=== PATIENT | male | born 1995 | race Caucasian/White ===

== ENCOUNTER 2021-06-13 19:59 | Emergency (ER) | payer SELFPAY ==
--- NOTE | 2021-06-13 20:03 | ED.GENADULT ---
HPI - General Adult General Chief complaint: Unspecified Stated complaint: left side of face droopy Time Seen by Provider: 06/13/21 20:03 Source: patient Mode of arrival: ambulatory Limitations: no limitations History of Present Illness HPI narrative: Twin Emery is a 26 yo male with no risk factors except smoking .5PPD,comes to express care 26 hrs after noticed eye tearing and mild L sided facial droop. No HTN, no known other factors. Has not had Covid vaccine Related Data Allergies Allergy/AdvReac Type Severity Reaction Status Date / Time No Known Allergies Allergy Verified 06/13/21 20:11 Review of Systems Review of Systems: CONSTITUTIONAL: Denies fever, chills, sweats. EYES: Denies visual changes, redness, discharge. ENT: Denies rhinorrhea, congestion, sore throat, otalgia. CARDIOVASCULAR: Denies chest pain, palpitations, edema. RESPIRATORY: Denies dyspnea, wheezing, cough GASTROINTESTINAL: Denies abdominal pain, nausea, vomiting, diarrhea. GENITOURINARY: Denies dysuria, hematuria, abnormal discharge SKIN: Denies rash or itching. NEUROLOGIC: Denies numbness, or focal weakness. Has slight left-sided facial droop with left eye tearing, no change in speech, difficulty with words, PSYCHIATRIC: Denies anxiety or depression. PMFSH Past Medical History Medical History No acute medical problems Family History Family History Grandparent Hypertension Social History Social History (Updated 06/13/21 @ 20:19 by Savita Wallace CNP) Smoking packs per day: 0.5 Smoking cigarettes per day: 10.0 Smoking status: Current every day smoker Alcohol intake: current Comments At time of signature, I agree with nursing past medical, surgical, social and family history. There is no relevant family history pertinent to the presenting complaint. Exam Narrative: GENERAL: This is a well-nourished, well-developed patient, in no distress. HEAD: normocephalic, atraumatic. EYES: PERRL. Sclera clear/white. Vision is grossly intact. No nystagmus noted EARS: External ears normal, Hearing grossly intact. NOSE: External nose normal without nasal discharge, nares without redness, no rhinorrhea. THROAT: Mucous membranes moist, NECK: Neck supple, non-tender CARDIOVASCULAR: Regular rate and rhythm without murmurs, gallops, or rubs. RESPIRATORY: Clear to auscultation. Breath sounds equal bilaterally. No wheezes, rales, or rhonchi. GASTROINTESTINAL: Abdomen soft, SKIN: warm, intact with no suspicious lesions or rash, good texture and turgor. NEURO: awake, alert, and oriented to person, place and time. There were no obvious focal neurologic abnormalities. Steady gait; MS grossly intact good finger opposition no deviation of tongue speech patterns are normal EXTREMITIES: Normal range of motion. All extremities move equally5+ strength BACK: Nontender without deformity Course Course Emergency Course: Patient comes to [facility] with complaints of mild left facial droop and eye tearing-26 hours out from when he first noticed symptoms Discussed inability to do testing here for more serious condition such as stroke versus Miranda's palsy Patient started on Medrol Dosepak and told to worsen or change she is to go to the ER for further work-up Vital Signs Vital signs: Vital Signs Temperature 98.6 F 06/13/21 20:06 Pulse Rate 73 06/13/21 20:06 Respiratory Rate 16 06/13/21 20:06 Blood Pressure 128/73 06/13/21 20:06 Pulse Oximetry 99 06/13/21 20:06 Temperature 98.6 F 06/13/21 20:06 Pulse Rate 73 06/13/21 20:12 Respiratory Rate 16 06/13/21 20:12 Blood Pressure 128/73 06/13/21 20:12 Pulse Oximetry 99 06/13/21 20:12 Medical Decision Making Differential Diagnosis Differential Diagnosis: Miranda's palsy versus TIA versus stroke Vital Signs Vital Signs: Vital Signs Temperature 98.6 F 0
[2021-06-13 20:06] VITALS: BP 128/73; PULSE 73; RESP 16; TEMP 37; O2SAT 99
[2021-06-13 20:12] VITALS: BP 128/73; PULSE 73; RESP 16; O2SAT 99
== END 2021-06-13 20:31 | disposition home or self-care (01) ==
PROVIDERS: Emergency Provider Nurse Practitioner
DX: G51.0 Bell's palsy (principal); F17.210 Nicotine dependence, cigarettes, uncomplicated
CPT/HCPCS: 99213; G0463